=== PATIENT | male | born 1940 | race Caucasian/White ===

== ENCOUNTER 2024-11-29 21:51 | Inpatient (IN) | payer MEDICARE ==
[~2024-11-29] VITALS: Ht 177.8 cm; Wt 74.8 kg
[2024-11-29 21:57] VITALS: O2SAT 98
[2024-11-29 22:50] LABS: CALCIUM, SERUM 8.9 mg/dL (8.5-10.1); CARBON DIOXIDE 33 mmol/L (21-32); CHLORIDE 101 mmol/L (98-107); GLUCOSE 227 mg/dL (74-106); POTASSIUM 4.3 mmol/L (3.5-5.1); SODIUM SERUM 138 mmol/L (136-145); UREA NITROGEN, BLOOD 17 mg/dL (7-18)
[2024-11-29 22:54] LABS: BASOPHILS # (AUTO) 0.1 K/uL (0.0-0.2); BASOPHILS % (AUTO) 0.9 % (0.0-2.0); EOSINOPHILS # (AUTO) 0.2 K/uL (0.0-0.7); EOSINOPHILS % (AUTO) 1.8 % (0.0-6.0); HEMATOCRIT 40 % (39-51); HEMOGLOBIN 13.3 g/dL (13.5-17.5); LYMPHOCYTES # (AUTO) 1.4 K/uL (0.8-4.8); LYMPHOCYTES % (AUTO) 17.4 % (20.0-44.0); MEAN CORPUSCULAR HEMOGLOBIN 30 PG (26.0-33.0); MEAN CORPUSCULAR HGB CONC 33 g/dl (31.0-36.0); MEAN CORPUSCULAR VOLUME 90 fL (80-96); MONOCYTES # (AUTO) 0.5 K/uL (0.1-1.30); MONOCYTES % (AUTO) 6.3 % (2.0-12.0); NEUTROPHILS # (AUTO) 6.1 K/uL (1.8-8.9); NEUTROPHILS % (AUTO) 73.6 % (43.0-81.0); PLATELET COUNT (AUTO) 172 K/uL (150-450); RED BLOOD CELL COUNT(AUTO) 4.46 MIL/uL (4.5-6.0); RED CELL DISTRIBUTION WIDTH 14.8 % (11.5-15.0); WHITE BLOOD COUNT (AUTO) 8.3 K/uL (4.3-11.0)
[2024-11-29 22:56] LABS: ACETAMINOPHEN <10 ug/ml (10-30); ALANINE AMINOTRANSFERASE 15 U/L (12-78); ALBUMIN 3.1 g/dL (3.4-5.0); ALCOHOL, BLOOD < 3 mg/dL (0-10); ALKALINE PHOSPHATASE 123 U/L (46-116); ASPARTATE AMINOTRANSFERASE 9 U/L (15-37); BILIRUBIN,DIRECT 0.1 mg/dL (0.0-0.2); BILIRUBIN,TOTAL 0.2 mg/dL (0.2-1.0); SALICYLATE 1.4 mg/dL (2.8-20.0); TOTAL PROTEIN, SERUM 7.7 g/dL (6.4-8.2)
[2024-11-29 23:15] LABS: APPEARANCE,URINE CLEAR (CLEAR); BILIRUBIN,URINE NEGATIVE (NEGATIVE); BLOOD, URINE NEGATIVE Ery/uL (NEGATIVE); COLOR,URINE YELLOW (YELLOW); KETONES,URINE TRACE mg/dL (NEGATIVE); LEUKOCYTE ESTERASE ,URINE NEGATIVE (NEGATIVE); NITRITE, URINE NEGATIVE (NEGATIVE); PH,URINE 6.5 (5.0-8.0); PROTEIN,URINE TRACE mg/dl (NEGATIVE); UGLUCOSE 1+ mg/dL (NEGATIVE)
[2024-11-29 23:27] LABS: AMPHETAMINE, URINE NEGATIVE (NEGATIVE); BARBITURATE, URINE NEGATIVE (NEGATIVE); BENZODIAZEPINE, URINE NEGATIVE (NEGATIVE); CANNABINOID, URINE NEGATIVE (NEGATIVE); COCCAINE, URINE NEGATIVE (NEGATIVE); OPIATE, URINE NEGATIVE (NEGATIVE); PHENCYCLIDINE SCREEN,URINE NEGATIVE (NEGATIVE)
[2024-11-29 23:35] LABS: ADD URINE CULTURE NO; BACTERIA,URINE Few /HPF (None Seen); WBC,URINE 0-2 /HPF (0-3)
[2024-11-29 23:36] LABS: SQUAMOUS EPITHELIAL CELL,UR Few /HPF (None Seen)
[2024-11-29] MEDS ORDERED: METF-442 PO (23:42)
[2024-11-29] MEDS ORDERED: DIVA500T54 PO (23:42)
[2024-11-29] MEDS ORDERED: TRAZ-182 PO (23:42)
[2024-11-29] MEDS ORDERED: DONE5TAB7 PO (23:42)
[2024-11-29] MEDS ORDERED: LACT100C2 PO (23:42)
[2024-11-29] MEDS ORDERED: CLOP75TA15 PO (23:42)
[2024-11-29] MEDS ORDERED: MEMA5TAB PO (23:42)
[2024-11-29] MEDS ORDERED: BREX1TAB PO (23:42)
[2024-11-29] MEDS ORDERED: ATOR40TA PO (23:42)
[2024-11-29] MEDS ORDERED: AMLO10TA4 PO (23:42)
[2024-11-29] MEDS ORDERED: SENN-18 PO (23:42)
[2024-11-29] MEDS ORDERED: MULT-594 PO (23:42)
[2024-11-29] MEDS ORDERED: METO25TA3 PO (23:42)
[2024-11-29] MEDS ORDERED: LISI-658 PO (23:42)
[2024-11-30 00:34] VITALS: BP 211/77
[2024-11-30] MEDS: BLOOD SUGAR DIAGNOSTIC 1 EACH STRIP IN ONE (00:46)
[2024-11-30] MEDS ORDERED: MAGNESIUM HYDROXIDE 30 ML UDC PO PRN (01:00)
[2024-11-30] MEDS ORDERED: LORAZEPAM 1 MG TABLET PO PRN (01:00)
[2024-11-30] MEDS ORDERED: ACETAMINOPHEN 325 MG TABLET PO PRN (01:00)
[2024-11-30] MEDS ORDERED: TEMAZEPAM 7.5 MG CAPSULE PO PRN ×2 (01:00)
[2024-11-30] MEDS ORDERED: MAG HYDROX/AL HYDROX/SIMETH 30 ML UDC PO PRN (01:00)
[2024-11-30 08:00] VITALS: BP 198/92; TEMP 97.9; O2SAT 95
[2024-11-30] MEDS: AMLODIPINE BESYLATE 10 MG TABLET PO SCH (08:15)
[2024-11-30] MEDS: LISINOPRIL (20MG) 20 MG TABLET PO SCH (08:15)
[2024-11-30] MEDS: METFORMIN 500 MG TABLET PO SCH (08:31)
[2024-11-30] MEDS: CLOPIDOGREL BISULFATE 75 MG TABLET PO SCH (08:31)
[2024-11-30] MEDS: LACTOBACILLUS RHAMNOSUS GG 1 EACH CAP.SPRINK PO SCH (08:31)
[2024-11-30] MEDS: SENNOSIDES 8.6 MG TABLET PO SCH (08:32)
[2024-11-30] MEDS: MULTIVITAMINS,THERAGRAN 1 UDTAB TABLET PO SCH (08:32)
[2024-11-30 16:00] VITALS: BP 119/53; TEMP 97.8; O2SAT 99
[2024-11-30] MEDS: DIVALPROEX SODIUM 250 MG TABLET.DR PO SCH (17:00)
[2024-11-30] MEDS: ATORVASTATIN 40 MG TABLET PO SCH (17:56)
[2024-11-30] MEDS: DONEPEZIL 5 MG TABLET PO SCH (17:56)
[2024-11-30 20:00] VITALS: BP 125/86; TEMP 97.9; O2SAT 99
[2024-11-30] MEDS: MEMANTINE HCL 5 MG TABLET PO SCH (21:34)
[2024-11-30] MEDS: METOPROLOL SUCCINATE 25 MG TAB.SR.24H PO SCH (21:35)
[2024-12-01 08:00] VITALS: BP 144/54; TEMP 97.8; O2SAT 99
[2024-12-01] MEDS: LORAZEPAM 0.5 MG TABLET PO PRN (11:46)
[2024-12-01 16:00] VITALS: BP 126/50; TEMP 98.6; O2SAT 96
[2024-12-01] MEDS: TRAZODONE 50 MG TABLET PO SCH (21:05)
[2024-12-01] MEDS: QUETIAPINE FUMARATE 25 MG TABLET PO SCH (21:06)
[2024-12-02 07:30] VITALS: BP 156/58; TEMP 98.1; O2SAT 99
[2024-12-02 16:00] VITALS: BP 134/55; TEMP 98.6; O2SAT 100
[2024-12-02 20:00] VITALS: BP 130/66; TEMP 98.5; O2SAT 97
[2024-12-02 20:27] VITALS: BP 130/66; TEMP 98.5; O2SAT 98
[2024-12-03 08:33] VITALS: BP 110/64; TEMP 97.8; O2SAT 98
[2024-12-03 16:00] VITALS: BP 128/50; TEMP 97.8; O2SAT 97
[2024-12-03 20:35] VITALS: BP 139/55; TEMP 97.6; O2SAT 98
[2024-12-04 08:00] VITALS: BP 139/61; TEMP 98.6; O2SAT 98
[2024-12-04] MEDS: QUETIAPINE FUMARATE 25 MG TABLET PO SCH (09:00)
[2024-12-04 16:00] VITALS: BP 123/56; TEMP 97.8; O2SAT 99
[2024-12-04] MEDS: Z GUARD REMEDY 4 OZ OINT TP SCH (21:06)
[2024-12-05 08:00] VITALS: BP 118/53; TEMP 97.7; O2SAT 98
[2024-12-05 16:09] VITALS: BP 124/51; TEMP 97.8; O2SAT 100
[2024-12-05] MEDS: TRAZODONE 50 MG TABLET PO SCH (21:07)
[2024-12-05 21:20] VITALS: BP 152/71; TEMP 97.9; O2SAT 100
[2024-12-06 08:00] VITALS: BP 160/73; TEMP 97.7; O2SAT 100
[2024-12-06 16:04] VITALS: BP 151/63; TEMP 98.1; O2SAT 99
[2024-12-06 20:00] VITALS: BP 141/52; TEMP 97.3; O2SAT 100
[2024-12-07 08:00] VITALS: BP 129/60; TEMP 97.5; O2SAT 98
[2024-12-07 16:00] VITALS: BP 138/65; TEMP 98; O2SAT 96
[2024-12-07 20:22] VITALS: BP 130/69; TEMP 98.1; O2SAT 97
[2024-12-08 08:00] VITALS: BP 119/50; TEMP 97.1; O2SAT 97
[2024-12-08 16:00] VITALS: BP 125/46; TEMP 97.7; O2SAT 95
[2024-12-08 20:05] VITALS: BP 115/68; TEMP 97.8; O2SAT 98
[2024-12-08] MEDS: TRAZODONE 50 MG TABLET PO SCH (21:18)
[2024-12-09 08:00] VITALS: BP 165/66; TEMP 98; O2SAT 100
[2024-12-09 16:00] VITALS: BP 148/72; TEMP 97.8; O2SAT 99
[2024-12-09 20:25] VITALS: BP 149/69; TEMP 97.9; O2SAT 98
[2024-12-10 08:00] VITALS: BP 152/72; TEMP 98.6; O2SAT 99
[2024-12-10 15:56] VITALS: BP 160/85; TEMP 98.1; O2SAT 98
[2024-12-10] MEDS: QUETIAPINE FUMARATE 25 MG TABLET PO SCH (21:58)
[2024-12-11 04:35] VITALS: BP 163/79
[2024-12-11] MEDS: CLONIDINE HCL 0.2MG/24H PTWK 1 EA PATCH TD SCH (06:27)
[2024-12-11 08:00] VITALS: BP 151/60; TEMP 97.9; O2SAT 99
[2024-12-11 08:23] VITALS: BP 151/60
== END 2024-12-11 12:30 | DRG 885 ==
LOC: ER 21:55 → GPS 11-30
PROVIDERS: ADMIT Nurse Practitioner Psychiatric/Mental Health
DX: F39 Unspecified mood [affective] disorder (principal); F03.92 Unspecified dementia, unspecified severity, with psychotic disturbance; F03.93 Unspecified dementia, unspecified severity, with mood disturbance; F29 Unspecified psychosis not due to a substance or known physiological condition; E78.5 Hyperlipidemia, unspecified; E11.9 Type 2 diabetes mellitus without complications; I10 Essential (primary) hypertension; I25.10 Atherosclerotic heart disease of native coronary artery without angina pectoris; Z73.6 Limitation of activities due to disability; F41.9 Anxiety disorder, unspecified; Z20.822 Contact with and (suspected) exposure to COVID-19; Z79.84 Long term (current) use of oral hypoglycemic drugs
CPT/HCPCS: 36415; 80048-TC; 80076-TC; 81001; 82962-TC; 85025-TC; 97110-TC; 97112-TC; 97116-TC; 97530-TC; G0480